=== PATIENT | female | born 1940 | race Caucasian/White ===

== ENCOUNTER → 2017-01-30 | Day surgery (SDC) | payer MEDICARE, OTHER ==
[~2017-01-30] VITALS: Ht 158.8 cm; Wt 67.5 kg
[~2017-01-30] MED LIST: ACETAMINOPHEN 1000 MG/100 ML 100 ML IV ONE; ALBU0.08 NEB; ASPE10GE TOPICAL; CHLORHEXIDINE GLUCONATE 2 % 1 PACK (2 CLOTHS) TOPICAL PRN; CLON.1 PO; COLA100C PO; DEXAMETHASONE SOD PHOS 4 MG/ML VIAL IV ONE; DIPH25CA PO; DO NOT ADM ANY ANTICOAGULANT DRUGS PRN; FERR325T8 PO; FLUT50SP EACH NARE; GABA400C5 PO; GUAI600T11 PO; HYDR-3366 PO; HYDR-3583 PO; HYDROmorphone HCL PF 2 MG/ML VIAL ONE; INSULIN HUMAN REGULAR 1,000 UNITS/10 ML VIAL SQ PRN; KETO2CRE TOPICAL; LAC-LOT2; LACTATED RINGER'S 1000 ML INJ 1,000 ML IV ONE; LACTATED RINGER'S 1000 ML IV PRN; LIDOCAINE HCL 1% PF 5 ML AMPULE OTHER ONE; METO25TA3 PO; METOPROLOL TARTRATE 25 MG TAB PO PRN; MILKSUS PO; MIRTA15 PO; MULT-177; MULTTAB67 PO; NEUR300C PO; NEUR400C PO; NIFE60TA58 PO; NIFE60TA8 PO; ONDANSETRON HCL 4 MG/2 ML VIAL IV PUSH ONE; ONDANSETRON HCL 4 MG/2 ML VIAL IV PUSH PRN; PERC5TAB12 PO; POVIDONE IODINE 5% (ANTISEPSIS KIT) 4 APPLICATIONS EACH NARE PRN; PROPOFOL 200 MG/20 ML AMP IV ONE; PROT40TA PO; SODIUM CHLORID 0.9% 500 ML IV PRN; TIZA2CAP3 PO; TRIAPOW; ePHEDrine/NS 25 MG/5 ML SYR IV ONE; oxyCODONE/ACETAMINOPHEN 5 MG/325 MG TAB PO PRN
--- NOTE | 2017-01-30 09:12 | RADRPT ---
EXAM DATE/TIME: 01/30/2017 08:44 [place] COMPARISON: No previous studies available for comparison. INDICATIONS : Left side stones, stent. Pre op lithotripsy. MEDICAL HISTORY : Renal calculi. SURGICAL HISTORY : Left kidney stent ENCOUNTER: Initial ACUITY: 1 day PAIN SCORE: 0/10 LOCATION: Abdomen FINDINGS: Double-J stent is present on the left side. There is an irregular shaped calcification projected ove r the upper pole of the left kidney measuring 10 mm. No calcifications on the right side or in eithe r flank. 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 No evidence of organomegaly. No dilated loops of bowel. CONCLUSION: 10 mm irregular shaped calcification upper pole left kidney with left-sided double J stent in place. Chuck Faria MD on January 30, 2017 at 9:08 Board Certified Radiologist. This report was verified electronically.
--- NOTE | 2017-01-30 12:36 | PD.OP ---
Operative Report Date of Surgery: Jan 30, 2017 Preoperative Diagnosis: (1) Ureteral calculus, left Postoperative Diagnosis: (1) Ureteral calculus, left Procedure: Extracorporeal shockwave lithotripsy left proximal ureteral calculus Anesthesia: General Surgeon: Aren Bowden [employer] Associate(s): None Operation and Findings: Indication for procedure: Case of a pleasant 76-year-old female with an approximately 1 cm left proximal ureteral calculus status post recent left stent placement who presents today to undergo shockwave lithotripsy. Operative procedure detail: Patient was brought to the operating room suite and placed supine on the OR table. She was then placed under general anesthesia. After appropriate timeout was undertaken I proceeded with localizing the patient 's left proximal ureteral calculus with fluoroscopy. She subsequently received shockwave lithotripsy utilizing the mobile door and he a lithotripsy unit 229. The patient received a total of 3000 shocks with a maximum power setting of 5. At conclusion of the procedure the stone still appeared intact. She tolerated the procedure without complications and was transferred to the PACU in satisfactory condition. Aren Bowden MD Jan 30, 2017 12:36
[2017-01-30 13:20] VITALS: BP 109/69; PULSE 60; RESP 18; TEMP 97.3; O2SAT 97
== END | disposition home or self-care (01) ==
LOC: HSDC 07:38
PROVIDERS: ATTEND Urology
DX: N20.1 Calculus of ureter (principal)
CPT/HCPCS: 00873; 50590; 74000; J0131; J1100; J1170; J2405; J7120